=== PATIENT | female | born 1970 | race Caucasian/White ===

== ENCOUNTER 2020-05-09 18:16 | Outpatient (CLI) | payer OTHER, SELFPAY ==
[2020-05-09 20:21] LABS: Free T4 Free Thyroxine 0.74 ng/dL (0.76-1.46); Thyroid Stimulating Hormone 2.62 uIU/mL (0.36-3.74); Vitamin B12 535 pg/mL (193-986)
[2020-05-15 09:59] LABS: Vitamin D 25 Hydroxy 21 ng/mL (30-100)
== END 2020-05-09 18:17 | disposition home or self-care (01) ==
LOC: CHSLAB 18:19
PROVIDERS: PCP Nurse Practitioner Family; Visit Provider Nurse Practitioner Family
DX: R53.83 Other fatigue (principal); R63.5 Abnormal weight gain; Z79.899 Other long term (current) drug therapy
CPT/HCPCS: 36415; 82306; 82607; 84439; 84443

== ENCOUNTER 2021-02-14 18:06 | Emergency (ER) | payer OTHER, SELFPAY ==
[2021-02-14 18:14] VITALS: BP 146/83; PULSE 83; RESP 16; TEMP 37.1; O2SAT 98
--- NOTE | 2021-02-14 18:38 | ED.SKABFB ---
HPI - Skin/Abscess/Foreign Bdy General Chief complaint: Skin/Abscess/Foreign Body Stated complaint: pos spider bite Time Seen by Provider: 02/14/21 18:20 Source: patient and RN notes reviewed Mode of arrival: ambulatory Limitations: no limitations History of Present Illness HPI narrative: Patient presents today complaining of redness and itching to her left forearm that she just noticed this morning. Believes she may have been bitten by an insect. Wanted to come in to be evaluated to make sure she did not have an infection. Patient took some Tylenol and used some Afterbite topical cream without relief. complaint: insect bite/sting Related Data Allergies Allergy/AdvReac Type Severity Reaction Status Date / Time No Known Allergies Allergy Unknown Unverified 02/14/21 18:14 Review of Systems Review of Systems: CONSTITUTIONAL: Denies body aches, fever, chills, or sweats. EYES: Denies visual changes, redness, or discharge. ENT: Denies rhinorrhea, congestion, sore throat, or otalgia. CARDIOVASCULAR: Denies chest pain, palpitations, or edema. RESPIRATORY: Denies cough or dyspnea. GASTROINTESTINAL: Denies abdominal pain, nausea, vomiting, or diarrhea. GENITOURINARY: Denies dysuria or hematuria. SKIN: Insect bite and itching to left forearm MUSCULOSKELETAL: Denies back pain, joint pain, or myalgia. NEUROLOGIC: Denies headache, numbness, tingling, or weakness. PSYCH: Denies depression or anxiety. [facility] Past Medical History Medical History ADRIANA (generalized anxiety disorder) Lymphoma Dx age 15; Hodgkin; cured; tx with radiation and chemo Surgical History Surgical History H/O splenectomy Family History Family History Father Family history of type 2 diabetes mellitus Hypertension Family history of chronic obstructive pulmonary disease Mother Family history of hypothyroidism Father Family history of chronic obstructive pulmonary disease Hypertension Family history of type 2 diabetes mellitus Father Family history of chronic obstructive pulmonary disease Hypertension Family history of type 2 diabetes mellitus Father Hypertension Family history of type 2 diabetes mellitus Family history of chronic obstructive pulmonary disease Mother Family history of hypothyroidism Social History Social History Smoking status: Never smoker Comments At time of signature, I have reviewed and agree with nursing past medical, surgical, social and family history unless otherwise noted. Please see nursing chart for further information. There is no relevant family history pertinent to the presenting complaint Exam Narrative: GENERAL: Well-appearing, well-nourished, and in no acute distress. HEAD: Normocephalic, atraumatic. EYES: EOMI. No redness or drainage. Conjunctivae normal. ENT: Mucous membranes pink and moist. NECK: Normal AROM. CHEST: No respiratory distress. SKIN: Warm, dry. Capillary refill normal. Normal skin turgor. Small puncture wound to dorsum of left forearm measuring 2 mm that is slightly swollen, consistent with an insect bite or sting, surrounded in a 6 x 6 cm round area of erythema. This area is not edematous. No ecchymosis, induration, or fluctuance noted. No tenderness. Patient has another similar puncture wound more proximal with a similar area of erythema. These areas are consistent with an allergic reaction and do not show signs of cellulitis at this time. No increased warmth. Distal sensation intact. Capillary refill normal. Radial pulse normal. Full range of motion of the wrist and elbow. NEURO: No focal deficits. Alert and oriented x3. Gait steady. PSYCH: Normal affect. No signs of depression or anxiety. Course Vital Signs Vital signs: Vit
== END 2021-02-14 18:50 | disposition home or self-care (01) ==
PROVIDERS: Emergency Provider Nurse Practitioner
DX: S50.362A Insect bite (nonvenomous) of left elbow, initial encounter (principal); W57.XXXA Bitten or stung by nonvenomous insect and other nonvenomous arthropods, initial encounter; Z85.71 Personal history of Hodgkin lymphoma; Z92.21 Personal history of antineoplastic chemotherapy; Z92.3 Personal history of irradiation; F41.1 Generalized anxiety disorder
CPT/HCPCS: 99213; G0463

== ENCOUNTER 2021-04-23 11:02 | Outpatient (CLI) | payer OTHER, SELFPAY ==
[2021-04-23 11:57] LABS: Influenza A QL RT-PCR Negative (Negative); Influenza B QL RT-PCR Negative (Negative)
--- NOTE | 2021-04-23 14:20 | PC.NURSE ---
Here for OP IV fluids
[2021-04-23 14:30] VITALS: BP 107/69; PULSE 78; RESP 18
[2021-04-23] MEDS: SODIUM CHLORIDE 0.9% IV 1,000 ML 500 ML IVPB (14:37)
--- NOTE | 2021-04-23 16:54 | PC.NURSE ---
Patient completed IV therapy. IV removed without difficulty. Pressure applied and then pressure dressing. Patient tolerated well.
[2021-04-23 16:55] VITALS: BP 118/83; PULSE 80; RESP 16; O2SAT 100
== END 2021-04-23 11:03 | disposition home or self-care (01) ==
LOC: CHSLAB 11:04 → CHSTREATRM 13:46
PROVIDERS: PCP Nurse Practitioner Family; Visit Provider Nurse Practitioner Family
DX: R53.81 Other malaise (principal)
CPT/HCPCS: 87502; 96360; 96361; J7030

== ENCOUNTER 2021-05-25 13:31 | Emergency (ER) | payer OTHER, SELFPAY ==
--- NOTE | 2021-05-25 13:31 | ED.URI ---
HPI - URI/Sore Throat General Chief Complaint: Upper Respiratory Infection Stated Complaint: SORE THROAT Time Seen by Provider: 05/25/21 13:45 Source: patient and RN notes reviewed Mode of arrival: ambulatory Limitations: no limitations History of Present Illness HPI Narrative: 50-year-old female presents with concern for 3-day history of body aches, chills, sweats, sinus pressure, sore throat. She reports she has been fully vaccinated for Covid. Reports she flew on an airplane late last week. She reports she has been using Tylenol ibuprofen with little relief. She denies cough, shortness of breath, nausea, vomiting, diarrhea. MD elicited complaint: sore throat Related Data Allergies Allergy/AdvReac Type Severity Reaction Status Date / Time No Known Allergies Allergy Unknown Unverified 04/23/21 10:31 Review of Systems Review of Systems: CONSTITUTIONAL: Reports malaise, chills, sweats. EYES: Denies visual changes, redness, or discharge. ENT: Reports rhinorrhea, congestion, and sore throat. CARDIOVASCULAR: Denies chest pain, palpitations, or edema. RESPIRATORY: Denies cough or dyspnea. GASTROINTESTINAL: Denies abdominal pain, nausea, vomiting, diarrhea SKIN: Denies rash or itching. MUSCULOSKELETAL: Reports myalgia. NEUROLOGIC: Reports headache. All systems reviewed & are unremarkable except as noted in HPI and below PMFSH Past Medical History Medical History ADRIANA (generalized anxiety disorder) Lymphoma Dx age 15; Hodgkin; cured; tx with radiation and chemo Surgical History Surgical History H/O splenectomy Family History Family History Father Family history of type 2 diabetes mellitus Hypertension Family history of chronic obstructive pulmonary disease Mother Family history of hypothyroidism Father Family history of chronic obstructive pulmonary disease Hypertension Family history of type 2 diabetes mellitus Father Family history of chronic obstructive pulmonary disease Hypertension Family history of type 2 diabetes mellitus Father Hypertension Family history of type 2 diabetes mellitus Family history of chronic obstructive pulmonary disease Mother Family history of hypothyroidism Social History Social History Smoking status: Never smoker Comments At time of signature, agree with nursing past medical, surgical, social and family history. There is no relevant family history pertinent to the presenting complaint Exam Narrative: GENERAL: Well-appearing, well-nourished, and in no acute distress. HEAD: Normocephalic EYES: PERRLA, conjunctivae clear ENT: Nares clear, turbinates erythematous, clear discharge. Mucous membranes moist. TM pearly diaz with dull light reflex bilaterally; no tragal tenderness. Oropharynx erythematous without lesions. Tonsils enlarged and with white exudate, no drooling, no hoarseness, no trismus, uvula midline. NECK: Supple. No lymphadenopathy CHEST: Clear to auscultation, breath sounds equal. No wheezing, rhonchi, rales, or stridor. No respiratory distress, speaks in full sentences. HEART: Regular rate and rhythm. No murmur heard. SKIN: Warm, dry, no rash. NEURO: Alert and oriented x3. PSYCH: Normal mood and affect Course Course Emergency Course: Patient is aware of diagnosis, understands and agrees to treatment plan. Anticipatory guidance given. Patient agrees to follow-up as directed and is aware of reasons to seek care at the emergency department. Portions of this record may have been created with voice recognition software Vital Signs Vital signs: Reviewed. MDM - URI/Sore Throat MDM Narrative Medical decision making narrative: Differential diagnosis considered: Mercado virus, strep pharyngitis, allergic rhinitis, upper respiratory tract
[2021-05-25 13:36] VITALS: BP 106/67; PULSE 103; RESP 20; TEMP 36.7; O2SAT 97
[2021-05-27 19:00] LABS: SARS-CoV-2 RNA PCR Negative
== END 2021-05-25 15:18 | disposition home or self-care (01) ==
PROVIDERS: Emergency Provider Nurse Practitioner; PCP Nurse Practitioner Family
DX: J02.8 Acute pharyngitis due to other specified organisms (principal); Z20.822 Contact with and (suspected) exposure to COVID-19; Z85.71 Personal history of Hodgkin lymphoma
CPT/HCPCS: 87081; 87426; 87880; 99213; C9803; G0463; U0003; U0005

== ENCOUNTER 2021-07-03 17:01 | Outpatient (CLI) | payer OTHER, SELFPAY ==
[2021-07-03 17:28] LABS: Basophils Absolute Auto 0.05 K/mm3 (0.00-0.10); Basophils Percent Auto 0.6 % (0.0-1.0); Eosinophils Absolute Auto 0.29 K/mm3 (0.02-0.50); Eosinophils Percent Auto 3.5 % (1.0-6.0); Hematocrit 40.2 % (35.0-49.0); Hemoglobin 13.7 g/dL (12.0-15.0); Immature Granulocyte Absolute 0.03 K/mm3 (0.00-0.00); Immature Granulocyte Percent A 0.4 % (0.0-0.0); Immature Platelet Fraction Pct 1.4 % (1.0-7.0); Lymphocytes Absolute Auto 2.75 K/mm3 (1.10-4.50); Lymphocytes Percent Auto 33.1 % (18.0-42.0); Mean Corpuscular HGB Conc 34.1 g/dL (32.0-36.0); Mean Corpuscular Hemoglobin 31.4 pg (27.0-31.0); Mean Corpuscular Volume 92.2 fL (78.0-102.0); Mean Platelet Volume 9.6 fl (9.2-11.8); Monocytes Absolute Auto 1.01 K/mm3 (0.10-0.90); Monocytes Percent Auto 12.2 % (2.0-11.0); Neutrophils Absolute Auto 4.2 K/mm3 (1.7-7.2); Neutrophils Percent Auto 50.2 % (50.0-70.0); Platelet Count Result 525 K/mm3 (150-420); Red Blood Count 4.36 M/mm3 (4.20-5.40); Red Cell Distribution Width 13.3 % (11.6-14.4); White Blood Count 8.3 K/mm3 (4.8-10.8)
[2021-07-03 17:55] LABS: Alanine Aminotransferase 18 U/L (14-59); Albumin Level 3.8 g/dL (3.4-5.0); Alkaline Phosphatase 88 U/L (46-116); Anion Gap 7 mmol/L (8-16); Aspartate Amino Transferase 17 U/L (15-37); Bilirubin,Total 0.3 mg/dL (0.00-1.00); Blood Urea Nitrogen 22 mg/dL (7-18); Calcium 8.4 mg/dL (8.5-10.1); Carbon Dioxide 31 mmol/L (21-32); Chloride 106 mmol/L (98-108); Estimated Glomerular Filt Rate > 60; Free T4 Free Thyroxine 0.74 ng/dL (0.76-1.46); Glucose 86 mg/dL (70-99); Magnesium 2.1 mg/dL (1.8-2.4); Osmolality Calculated 300 mOsm/kg (285-295); Sodium 144 mmol/L (136-145); Thyroid Stimulating Hormone 2.63 uIU/mL (0.36-3.74); Total Protein 7.6 g/dL (6.4-8.2)
[2021-07-06 23:51] LABS: Vitamin D 25 Hydroxy 29 ng/mL (30-100)
== END 2021-07-03 17:02 | disposition home or self-care (01) ==
LOC: CHSLAB 17:03
PROVIDERS: PCP Nurse Practitioner Family; Visit Provider Nurse Practitioner Family
DX: R42 Dizziness and giddiness (principal); E55.9 Vitamin D deficiency, unspecified
CPT/HCPCS: 36415; 80053; 82306; 83735; 84439; 84443; 85025; 85055

== ENCOUNTER 2021-07-16 15:32 | Outpatient (CLI) | payer OTHER, SELFPAY ==
[2021-07-16 16:52] LABS: SARS-CoV-2 RNA PCR Positive (Negative)
== END 2021-07-16 15:33 | disposition home or self-care (01) ==
LOC: CHSLAB 15:37
PROVIDERS: PCP Nurse Practitioner Family; Visit Provider Nurse Practitioner Family
DX: U07.1 COVID-19 (principal)
CPT/HCPCS: C9803; U0003; U0005